=== PATIENT | male | born 1965 | race Caucasian/White ===

== ENCOUNTER 2019-10-03 20:38 | Emergency (ER) | payer MEDICAID, OTHER ==
[~2019-10-03] VITALS: Ht 157.5 cm; Wt 65.8 kg
[2019-10-03 20:58] VITALS: BP 136/67
--- NOTE | 2019-10-03 21:06 | NUR ---
PER PA, ORDER TETRICAINE EYE DROP
[2019-10-03] MEDS ORDERED: FLUORESCEIN SODIUM OPHTH 1 EA STRIP ONE (21:18)
== END 2019-10-03 22:25 | disposition home or self-care (01) ==
LOC: ER 20:43
DX: T15.01XA Foreign body in cornea, right eye, initial encounter (principal); X58.XXXA Exposure to other specified factors, initial encounter; Y93.89 Activity, other specified; Y92.89 Other specified places as the place of occurrence of the external cause; Y99.8 Other external cause status